=== PATIENT | female | born 1930 | race Caucasian/White ===

== ENCOUNTER 2019-08-05 15:26 | Outpatient (CLI) | payer MEDICARE, OTHER ==
--- NOTE | 2019-08-05 16:20 | ULT ---
ULTRASOUND DOPPLER DUPLEX VENOUS BILATERAL LOWER EXTREMITIES: DATE: 08/05/2019 HISTORY: Bilateral lower extremity edema in 89-year-old female. TECHNIQUE: Grayscale, color-flow, and spectral analysis, of major veins of bilateral lower extremities. FINDINGS: There is demonstration of blood flow with normal compressibility, of the bilateral common femoral, pr ofunda femoral, greater saphenous, femoral, popliteal, and posterior tibial, veins. 3.5 x 3 x 1.5 cm complex, hypoechoic mass with anechoic components and intermediate echogenicity regions in the med ial popliteal area of the left lower extremity. IMPRESSION: 1. No deep venous thrombosis of bilateral lower extremities. 2. Left complex Jeffrey's cyst.
== END 2019-08-05 15:27 | disposition home or self-care (01) ==
LOC: ULT 15:26
PROVIDERS: ATTEND Family Medicine
DX: R60.0 Localized edema (principal); M71.22 Synovial cyst of popliteal space [Baker], left knee
CPT/HCPCS: 93970